=== PATIENT | male | born 1950 ===

== ENCOUNTER → 2021-11-10 | Outpatient (CLI) | payer MEDICARE, BC ==
[~2021-11-10] MED LIST: DOBUTamine DRIP for NUC MED 500 MG in DEXTROSE/WATER 1 250ML.BAG IV PRN
--- NOTE | 2021-11-10 19:21 | CA ---
Dobutamine Stress Echocardiogram Report Josh Franz Age: 71 Gender: M : 1950 Exam Date: 11/10/2021 09:33 Exam Location: [facility] Ordering Physician: Earnest Montavlo DO Referring Physician: EARNEST MONTALVO,, Filler Sifter Helper: NICHOLE Technologist: Ht (in): 72 Wt (lb): 220 Procedure CPT: Indication: I50.9 heart failure ICD-9 Codes: Rhythm: Patient History: sob, dm, chol, family hx. Cardiac Medications: Medications in past 24 hours: Contrast: Lumason Total Dose (mL): 10 Stress Results Protocol: Dobutamine Peak Dose (???g/kg/min): 40 Duration (min:sec): Atropine:(mg) N/A Target HR: 125 Double Product: Resting HR: 72 Resting BP: 146 / 81 Peak HR: 128 Peak BP: 157 / 77 Max Predicted HR: 147 87 % Max Predicted HR Stress Summary: BP Response: Reason for Termination: Cardiac Symptoms: ECG Analysis Resting EKG: Stress EKG: Arrhythmia: Echo Analysis Base Echo Analysis: Low Echo Anaylsis: Peak Echo Analysis: Recovery Echo: MEASUREMENTS (Male/Female) Normal Values CONCLUSIONS Baseline heart rate 73 beats a minute, Baseline blood pressure 146/81 mmHg Baseline 12-lead EKG showed sinus rhythm with normal ST segments Patient received dobutamine infusion the per protocol Peak heart rate 120 beats a minute Blood pressure 157/77 mmHg No ECG ms for ischemia Excellent augmentation of overall LV contractility in a stepwise manner without development of any wall motion abnormalities At recovery regional global LV systolic function within normal Impression normal dobutamine stress echo Dr. Florencio Medeiros MD (Electronically Signed) Final Date: 10 Nov 2021 19:20
== END | disposition home or self-care (01) ==
LOC: RADNMMAIN 08:57
PROVIDERS: ATTEND Internal Medicine Nephrology
DX: I50.9 Heart failure, unspecified (principal)
CPT/HCPCS: C8930; Q9950; 93351

== ENCOUNTER → 2023-05-25 | Outpatient (CLI) | payer MEDICARE, BC ==
[2023-05-25 16:20] LABS: HCT 35.2 % (39.6-50.0); HGB 11.2 g/dL (13.0-17.0); MCHC 31.8 g/dL (32.0-37.0); MCV 72.3 FL (80.0-97.0); Mean Platelet Volume 11.9 FL (9.5-12.2); NRBC Per 100 WBC 0 X 10*3/uL (0.00-0.01); Platelet Count 220 X 10*3/uL (140-440); RBC 4.87 X 10*6/uL (4.40-5.60); RDW 16.1 % (11.5-14.5); WBC 6.23 X 10*3/uL (4.50-10.00)
[2023-05-25 16:35] LABS: BUN/Creat Ratio 16.19 Ratio (12.00-20.00); Blood Urea Nitrogen 25.9 mg/dL (9.0-27.0); Carbon Dioxide 25.2 mmol/L (21.6-31.8); Chloride 103 mmol/L (96-109); Glucose 265 mg/dL (70-110); Potassium 4.4 mmol/L (3.5-5.5); Sodium 140 mmol/L (135-145)
[2023-05-25 16:50] LABS: Basophils # (A) 0.02 X 10*3/uL (0.00-0.10); Basophils % (A) 0.3 %; Eosinophils # (A) 0.24 X 10*3/uL (0.04-0.35); Eosinophils % (A) 3.9 %; Lymphocytes # (A) 1.48 X 10*3/uL (0.90-5.00); Lymphocytes % (A) 23.8 %; Monocytes # (A) 0.46 X 10*3/uL (0.20-1.00); Monocytes % (A) 7.4 %; Neutrophils % (A) 64.1 %; RBC Morphology Normal (Normal)
== END | disposition home or self-care (01) ==
LOC: LABWHC1 10:29
PROVIDERS: ATTEND Surgery
DX: R39.14 Feeling of incomplete bladder emptying (principal)
CPT/HCPCS: 36415; 80048; 85025

== ENCOUNTER → 2023-08-17 | Outpatient (CLI) | payer BC, MEDICARE ==
[2023-08-17 08:39] VITALS: RESP 14
[2023-08-17 08:40] VITALS: BP 146/86; PULSE 81
--- NOTE | 2023-08-17 09:12 | P.PAINPG ---
PQRS Measure Charge Sheet Comment: HISTORY OF PRESENT ILLNESS: A 73 yr old male w at side as a referral from Dr Singh Barrow presents today w severe and chronic incomplete bladder emptying secondary to Prostatic Hyperplasia for evaluation. Pt states intensity level is provoked at 8 /10 in intensity, constant but waxes & wanes in intensity, localized in the periurethral region, achy in character without shooting pain. Discomfort is alleviated slightly by frequent bladder emptying, medications (Tramadol), repositioning and rest. PMH: OA, HTN, BPH PSH: TURP (Apr 2023) SH: Never smoker, No ETOH abuse, No illicit drug use. . FH: DM All: See list Meds: See list REVIEW OF ORGAN SYSTEMS: CONSTITUTIONAL: No fevers or chills. No recent weight loss. NEUROLOGICAL: + numbness and tingling along the distal extremities. No seizure disorders or headaches. MUSCULOSKELETAL: + pain PSYCHIATRIC: Denies current depression or suicidal thoughts. Physical Examinations : Constitutional : Cooperative , not in acute distress . Neurologic : Cranial nerve II to XII intact. No focal neurological deficits. Psychiatric : alert & oriented x 3. Matching mood & appropriate affect. Judgment & insight intact. Musculoskeletal : Cervical Spine Motor strength in the deltoid and biceps: Normal right side. Normal Left side Motor strength biceps and the wrist extensors: Normal right side . Normal left side Motor strength in the triceps muscle: Normal right side. Normal left side Deep tendon reflexes: Normal at the biceps. Normal at Brachioradialis. Normal at triceps Vertebral body tenderness to deep palpation over Cervical facet loading test: positive bilaterally Spurling test: positive bilaterally Neck distraction test: positive bilaterally Anna sign: positive bilaterally Lumbar spine Motor strength lower extremities ,thigh and legs 5/5 Right side , 5/5 Left side Deep tendon reflexes : Normal Knee Jerk. Normal Ankle Jerk Vertebral body tenderness over Seay Test positive Lumbar facet Loading Test: positive Right / positive Left Range of motion of the lumbar spine Flexion 30 degrees, extension 10 degrees Straight Leg Raise test: Left/ Right positive at degrees José test: positive right / positive left. Severe tenderness over the Sacroiliac joint on the Right / Left sides Gaenslen test: positive bilaterally Seated flexion test: positive bilaterally. Sacral spine : Severe tenderness over the Sacroiliac joint: right side / left side Range of motion: Flexion of the lumbar spine <60 degrees Range of motion: Extension of the keke mbar spine <20 degrees Gaenslen's Test positive José test: positive right side / left side Thigh Thrust Test Sacral Thrust Test Imaging: None on file Assessment/ Plan : Sense of Bladder Fullness secondary to Prostatic Hyperplasia Recommendation of Pudendal Nerve Block. May need a series of injections for optimal pain relief. Risks, benefits of procedure discussed and patient verbalized understanding. Admits to anti- coagulant use or medical history of diabetes. Protocol for discontinuation/ continuation of medications verona procedure discussed. Minimal anesthesia provided, if clinically indicated, consisting of Versed and Fentanyl. All questions answered. I have spent greater than 30 minutes on patient care today. Dr Mack was available by phone for the evaluation of this patient. The time was used to review the medical records including relevant urine studies and Prescription history (MAPs), review of the available imaging, evaluation and examination of the patient, coordination of care with the medical staff and if applicable referring physicians, as well as creation of the medical record Home Medications: Ambulatory Orders Aspirin EC [Ecotrin Low Dose] 81 mg PO DAILY 08/17/23 Fenofibrate Nanocrystallized [Tricor] 145 mg PO 08/17/23 Insulin Aspart Scale Rx Form [NovoLOG Outpatient Scale Rx Form] 1 each MISCELLANE DIRECTED 08/17/23 Insulin Glargine [Lantus Vial] 0 unit SQ HS 08/17/23 Metoprolol Succinate (ER) [Toprol Xl] 12.5 mg PO DAILY 08/17/23 Metoprolol Succinate (ER) [Toprol Xl] 25 mg PO DAILY 08/17/23 Simvastatin [Zocor] 40 PO DAILY 08/17/23 amLODIPine [Norvasc] 5 mg PO DAILY 08/17/23 Controlled Substance Measures - Controlled Substance Measures Is patient prescribed a controlled substance at discharge?: No
== END ==
LOC: PNWHC3 07:44
PROVIDERS: ATTEND Anesthesiology
DX: N40.1 Benign prostatic hyperplasia with lower urinary tract symptoms (principal); R39.14 Feeling of incomplete bladder emptying; M19.90 Unspecified osteoarthritis, unspecified site; I10 Essential (primary) hypertension; Z79.82 Long term (current) use of aspirin; Z79.899 Other long term (current) drug therapy
CPT/HCPCS: 99211

== ENCOUNTER 2023-08-23 11:01 | Day surgery (SDC) | payer MEDICARE ==
[~2023-08-23 11:01] MED LIST changes: -DOBUTamine DRIP for NUC MED 500 MG in DEXTROSE/WATER 1 250ML.BAG IV PRN; +LACTATED RINGERS 1,000 ML IV SCH
[2023-08-23] MEDS: LACTATED RINGERS 1,000 ML IV ONE (11:23)
[2023-08-23 12:05] VITALS: RESP 16; TEMP 98.2
[2023-08-23] MEDS ORDERED: ROPIVACAINE 5MG/ML 20ML VIAL ONE (12:34)
[2023-08-23] MEDS ORDERED: methylPREDNISolone ACETATE 40 MG/ML 1 ML VIAL ONE (12:34)
--- NOTE | 2023-08-23 12:59 | P.PCN ---
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 Complication = none Condition= stable Anesthesia= local anesthesia with ropivacaine 0.5% 4 ml only Indication for the procedure= patient complaining of spermatic pain, diagnosed with pudendal neuralgia , he was referred to have bilateral pudendal nerve block Description of the procedure= procedure risk and benefits discussed with the patient, including but not limited, risk of infection and bleeding, and ALLERGIC reaction to the medication and not complete pain relief and patient agreed with the preceding patient taken to the operating room, placed in prone position or standard monitors applied to the patient then after induction of anesthesia back prepped with chlorhexidine 3 times , Then under strict sterile technique, first I did the right pudendal nerve 21- gauge Jank needle advanced slowly with ultrasound guidance and passed through sacrospinous ligament and sacrotuberous ligament, then needle advanced medial to pudendal artery, after negative aspiration ropivacaine 0.25% mixed with 20 mg of Depo-Medrol injected after negative aspiration, 5 cc of the mixture injected, the exact same procedure was done to the left side, did the left side pudendal nerve block
[2023-08-23 13:34] VITALS: BP 139/80; PULSE 65
== END 2023-08-23 13:27 | disposition home or self-care (01) ==
LOC: ORPAIN 11:01
PROVIDERS: ATTEND Specialist
DX: G57.83 Other specified mononeuropathies of bilateral lower limbs (principal); E11.9 Type 2 diabetes mellitus without complications; Z79.82 Long term (current) use of aspirin
CPT/HCPCS: 64483; J1030; J2795

== ENCOUNTER → 2023-09-07 | Outpatient (CLI) | payer MEDICARE ==
[2023-09-07 10:29] VITALS: BP 134/80; PULSE 91; RESP 16; TEMP 97.3
--- NOTE | 2023-09-07 14:26 | P.PAINPG ---
PQRS Measure Charge Sheet Comment: HISTORY OF PRESENT ILLNESS: A 73 yr old male w at side presents today w severe and chronic incomplete bladder emptying secondary to Prostatic Hyperplasia for evaluation s/p Pudendal Nerve Block. Pt states he experienced 0% pain relief s/p procedure. Pt states intensity level is provoked at 8 /10 in intensity, constant but waxes & wanes in intensity, localized in the periurethral region, stinging in character without shooting pain. Discomfort is alleviated slightly by frequent bladder emptying, medications, repositioning and rest. Interventional procedures include Pudendal NB x1 (Jul 2023) Medications include Tramadol REVIEW OF ORGAN SYSTEMS: CONSTITUTIONAL: No fevers or chills. No recent weight loss. NEUROLOGICAL: + numbness and tingling along the distal extremities. No seizure disorders or headaches. MUSCULOSKELETAL: + pain PSYCHIATRIC: Denies current depression or suicidal thoughts. Physical Examinations : Constitutional : Cooperative , not in acute distress . Neurologic : Cranial nerve II to XII intact. No focal neurological deficits. Psychiatric : alert & oriented x 3. Matching mood & appropriate affect. Judgment & insight intact. Musculoskeletal : Cervical Spine Motor strength in the deltoid and biceps: Normal right side. Normal Left side Motor strength biceps and the wrist extensors: Normal right side . Normal left side Motor strength in the triceps muscle: Normal right side. Normal left side Deep tendon reflexes: Normal at the biceps. Normal at Brachioradialis. Normal at triceps Vertebral body tenderness to deep palpation over Cervical facet loading test: positive bilaterally Spurling test: positive bilaterally Neck distraction test: positive bilaterally Anna sign: positive bilaterally Lumbar spine Motor strength lower extremities ,thigh and legs 5/5 Right side , 5/5 Left side Deep tendon reflexes : Normal Knee Jerk. Normal Ankle Jerk Vertebral body tenderness over Seay Test positive Lumbar facet Loading Test: positive Right / positive Left Range of motion of the lumbar spine Flexion 30 degrees, extension 10 degrees Straight Leg Raise test: Left/ Right positive at degrees José test: positive right / positive left. Severe tenderness over the Sacroiliac joint on the Right / Left sides Gaenslen test: positive bilaterally Seated flexion test: positive bilaterally. Sacral spine : Severe tenderness over the Sacroiliac joint: right side / left side Range of motion: Flexion of the lumbar spine <60 degrees Range of motion: Extension of the lumbar spine <20 degrees Gaenslen's Test positive José test: positive right side / left side Thigh Thrust Test Sacral Thrust Test Imaging: None on file Assessment/ Plan : Sense of Bladder Fullness secondary to Prostatic Hyperplasia Recommendation of Ganglion Impar Block. May need a series of injections for optimal pain relief. Risks, benefits of procedure discussed and patient verbalized understanding. Admits to anti- coagulant use or medical history of diabetes. Protocol for discontinuation/ continuation of medications verona procedure discussed. Minimal anesthesia provided, if clinically indicated, consisting of Versed and Fentanyl. Recommendation of medication management. Tramadol 50mg #60 w 1 RF. Narcotic/ Opiate agreement signed 09/07/23. Use, side effects, adverse reaction and safe storage discussed. All questions answered. I have spent greater than 30 minutes on patient care today. Dr Mack was available by phone for the evaluation of this patient. The time was used to review the medical records including relevant urine studies and Prescription history (MAPs), review of the available imaging, evaluation and examination of the patient, coordination of care with the medical staff and if applicable referring physicians, as well as creation of the medical record PQRS Narrative: Hx Alcohol Use (MH) No Home Medications: Ambulatory Orders Fenofibrate Nanocrystallized [Tricor] 145 mg PO QAM 08/17/23 Insulin Aspart Scale Rx Form [NovoLOG Outpatient Scale Rx Form] 0 each MISCELLANE ACHS 08/17/23 Insulin Glargine [Lantus Vial] 50 unit SQ HS 08/17/23 Metoprolol Succinate (ER) [Toprol Xl] 12.5 mg PO BID 08/17/23 Simvastatin [Zocor] 40 mg PO HS 08/17/23 amLODIPine [Norvasc] 5 mg PO QAM 08/17/23 Vit C/E/Zn/Coppr/Lutein/Zeaxan [Preservision Areds 2 Softgel] 1 each PO DAILY 08/18/23 traMADol HCL [traMADol HCL ER] 1 tab PO BID PRN 30 Days #60 cap 09/07/23 Controlled Substance Measures - Controlled Substance Measures Is patient prescribed a controlled substance at discharge?: Yes When asked, does pt state using other controlled substances?: No If prescribed controlled substance>3 days was MAPS reviewed?: Yes If Rx opioid, was Start Talking consent form obtained?: Yes Was information provided regarding opioid addiction?: Yes
== END ==
LOC: PNWHC3 08:31
PROVIDERS: ATTEND Specialist
DX: N40.1 Benign prostatic hyperplasia with lower urinary tract symptoms (principal); N32.89 Other specified disorders of bladder; E11.9 Type 2 diabetes mellitus without complications; Z79.4 Long term (current) use of insulin
CPT/HCPCS: 99211

== ENCOUNTER 2023-09-27 07:14 | Day surgery (SDC) | payer MEDICARE ==
[2023-09-22 12:19] VITALS: BMI 29.8
[2023-09-27 07:50] VITALS: RESP 18; TEMP 97.4
[2023-09-27] MEDS: LACTATED RINGERS 1,000 ML IV SCH (07:50)
[2023-09-27 07:53] LABS: Glucose,Whole Blood 159 mg/dL (70-110)
[2023-09-27] MEDS ORDERED: ROPIVACAINE 5MG/ML 20ML VIAL ONE (08:19)
[2023-09-27] MEDS ORDERED: IOPAMIDOL M200 10 ML VIAL ONE (08:19)
[2023-09-27] MEDS ORDERED: TRIAMCINOLONE ACETONIDE 40 MG/ML 1 ML VIAL ONE (08:19)
--- NOTE | 2023-09-27 08:30 | P.PCN ---
Date of Procedure: 09/27/23 Procedure(s) Performed: Ganglion Impar Block with Fluoroscopy Date of the procedure: 09/27/2023 PREOP DIAGNOSIS= Proctalgia/Coccydynia POSTOP DIAGNOSIS=:Proctalgia/Coccydynia PROCEDURE: Ganglion impar block under fluoroscopy guidance. SURGEON: Pedro Singh MD ANESTHESIA: Local with 1% lidocaine 3 ml EBL:None. Fluoroscopy image saved and stored PROCEDURE INDICATION: The patient with chronic proctitis non responsive to more conservative measures. severe and chronic incomplete bladder emptying secondary to Prostatic Hyperplasia PROCEDURE DESCRIPTION: The patient was seen and identified in the preoperative area. Risks, benefits, complications, and alternatives were discussed with the patient. The patient agreed to proceed with the procedure and signed the consent. IV was started, and vital signs were stable. Patient was taken to the OR and time out was completed. The patient was placed in the prone position on procedure table and a pillow was placed under the abdomen to reduce lumbar lordosis.The lumbosacral area was prepped and draped in the usual sterile fashion. Critical pause was taken. Vital signs were closely monitored during the procedure. Using crosstable lateral view, the sacrococcygeal joint was identified and localized with 1% lidocaine. 25-guage 3-1/2 inch needle was inserted through the sacrococcygeal ligament and advanced to the anterior aspect of the joint guided by surjit-posterior and lateral fluoroscopy. Correct needle position was verified by injecting 2 ml of water soluble dye, Omnipaque 300, and observing a spread along the anterior side of the sacro-coccygeal ligament. After negative aspiration of CSF, blood, and no paresthesias, 5 mL of block solution containing 4mL of 0.5%preservative-free Ropivacaine and kenalog 40 mg was injected. Continuous fluoroscopy was utilized to visualize appropriate spread proximally, Needle was withdrawn intact. Skin was cleansed and bandages were applied COMPLICATIONS: None DISPOSITION / PLANS: The patient was placed in a supine position and transferred to the recovery area in a stable condition for observation. Patient was discharged from the recovery room after meeting discharge criteria. Discharge instructions given to the patient by the staff. The patient was reexamined prior to discharge. The patient will schedule a follow up in the clinic in 2-4 weeks.
[2023-09-27] MEDS: IV FLUID CONTINUATION 600 ML IV ONE (08:32)
[2023-09-27 09:01] VITALS: BP 135/78; PULSE 62
--- NOTE | 2023-09-27 10:00 | FL ---
EXAMINATION TYPE: FL guided pain mgmt statistic Intraoperative/procedural fluoroscopic services were provided. Total fluoroscopy time is 17.1 seconds with a total of 3 submitted images to PACS. Please s ee the operative/procedural note for further details. DAP: [id number] mGym2
== END 2023-09-27 09:02 | disposition home or self-care (01) ==
LOC: ORPAIN 07:14
PROVIDERS: ATTEND Anesthesiology
DX: M53.3 Sacrococcygeal disorders, not elsewhere classified (principal)
CPT/HCPCS: 64999; J3301; Q9966; J2795

== ENCOUNTER → 2023-11-02 | Outpatient (CLI) | payer MEDICARE ==
[2023-11-02 10:41] LABS: Basophils # (A) 0.02 X 10*3/uL (0.00-0.10); Basophils % (A) 0.4 %; Eosinophils # (A) 0.15 X 10*3/uL (0.04-0.35); Eosinophils % (A) 2.8 %; HCT 39.6 % (39.6-50.0); HGB 12.6 g/dL (13.0-17.0); Lymphocytes # (A) 1.55 X 10*3/uL (0.90-5.00); Lymphocytes % (A) 29.4 %; MCH 23.3 pg (27.0-32.0); MCHC 31.8 g/dL (32.0-37.0); MCV 73.3 FL (80.0-97.0); Monocytes # (A) 0.39 X 10*3/uL (0.20-1.00); Monocytes % (A) 7.4 %; NRBC Per 100 WBC 0 X 10*3/uL (0.00-0.01); Neutrophils # (A) 3.14 X 10*3/uL (1.80-7.70); Neutrophils % (A) 59.6 %; Platelet Count 154 X 10*3/uL (140-440); RDW 17.1 % (11.5-14.5); WBC 5.27 X 10*3/uL (4.50-10.00)
[2023-11-02 10:47] LABS: Creatinine,Urine Random 148.9 mg/dL
[2023-11-02 14:17] LABS: Appearance,Urine Clear (Clear); Bilirubin,Urine Negative (Negative); Blood,Urine Negative (Negative); Color,Urine Yellow (Yellow); Ketones,Urine Negative (Negative); Nitrite,Urine Negative (Negative); PH, Urine 5.5; Specific Gravity,Urine 1.017 (1.001-1.030)
[2023-11-02 15:39] LABS: BUN/Creat Ratio 15.79 Ratio (12.00-20.00); Blood Urea Nitrogen 22.1 mg/dL (9.0-27.0); Calcium 9.6 mg/dL (8.7-10.3); Carbon Dioxide 24.8 mmol/L (21.6-31.8); Chloride 105 mmol/L (96-109); Glucose 170 mg/dL (70-110); Sodium 141 mmol/L (135-145)
== END | disposition home or self-care (01) ==
LOC: LABWHC1 07:38
PROVIDERS: ATTEND Internal Medicine
DX: N40.1 Benign prostatic hyperplasia with lower urinary tract symptoms (principal); R80.9 Proteinuria, unspecified; N18.31 Chronic kidney disease, stage 3a; I10 Essential (primary) hypertension
CPT/HCPCS: 36415; 80048; 81003; 82570; 83036; 84156; 85025

== ENCOUNTER → 2023-11-02 | Outpatient (CLI) | payer MEDICARE ==
[2023-11-02 08:53] VITALS: BP 135/72; PULSE 76; RESP 15; TEMP 97.2
--- NOTE | 2023-11-02 14:10 | P.PAINPG ---
Objective - Vital Signs Vital signs: Intake & Output 11/01/23 11/02/23 11/02/23 18:59 06:59 18:59 Weight 104.326 kg PQRS Measure Charge Sheet Comment: HISTORY OF PRESENT ILLNESS: A 73 yr old male w at side presents today w severe and chronic incomplete bladder emptying secondary to Prostatic Hyperplasia for evaluation s/p Ganglion Impar Block #1. Pt states he experienced 50% pain relief x 2 wks s/p procedure. Pt states intensity level is provoked at 6 /10 in intensity, constant but waxes & wanes in intensity, localized in the periurethral region, stinging in character without shooting pain. Discomfort is alleviated slightly by frequent bladder emptying, medications, repositioning and rest. Interventional procedures include Pudendal NB x1 (Jul 2023), Ganglion Impar Block x1 (Sep 2023) Medications include Tramadol REVIEW OF ORGAN SYSTEMS: CONSTITUTIONAL: No fevers or chills. No recent weight loss. NEUROLOGICAL: + numbness and tingling along the distal extremities. No seizure disorders or headaches. MUSCULOSKELETAL: + pain PSYCHIATRIC: Denies current depression or suicidal thoughts. Physical Examinations : Constitutional : Cooperative , not in acute distress . Neurologic : Cranial nerve II to XII intact. No focal neurological deficits. Psychiatric : alert & oriented x 3. Matching mood & appropriate affect. Judgment & insight intact. Musculoskeletal : Cervical Spine Motor strength in the deltoid and biceps: Normal right side. Normal Left side Motor strength biceps and the wrist extensors: Normal right side . Normal left side Motor strength in the triceps muscle: Normal right side. Normal left side Deep tendon reflexes: Normal at the biceps. Normal at Brachioradialis. Normal at triceps Vertebral body tenderness to deep palpation over Cervical facet loading test: positive bilaterally Spurling test: positive bilaterally Neck distraction test: positive bilaterally Anna sign: positive bilaterally Lumbar spine Motor strength lower extremities ,thigh and legs 5/5 Right side , 5/5 Left side Deep tendon reflexes : Normal Knee Jerk. Normal Ankle Jerk Vertebral body tenderness over Seay Test positive Lumbar facet Loading Test: positive Right / positive Left Range of motion of the lumbar spine Flexion 30 degrees, extension 10 degrees Straight Leg Raise test: Left/ Right positive at degrees José test: positive right / positive left. Severe tenderness over the Sacroiliac joint on the Right / Left sides Gaenslen test: positive bilaterally Seated flexion test: positive bilaterally. Sacral spine : Severe tenderness over the Sacroiliac joint: right side / left side Range of motion: Flexion of the lumbar spine <60 degrees Range of motion: Extension of the lumbar spine <20 degrees Gaenslen's Test positive José test: positive right side / left side Thigh Thrust Test Sacral Thrust Test Imaging: None on file Assessment/ Plan : Sense of Bladder Fullness secondary to Prostatic Hyperplasia Disinterested in additional procedures at this time. Recommendation of medication management. Tramadol 50mg #60 w 1 RF. Add Neurontin 100mg to titrate to BID #60 w 1 RF. Use, side effects, adverse reactions, safe storage discussed. Narcotic/ Opiate agreement signed 09/07/23. Use, side effects, adverse reaction and safe storage discussed. All questions answered. I have spent greater than 30 minutes on patient care today. Dr Mack was available by phone for the evaluation of this patient. The time was used to review the medical records including relevant urine studies and Prescription history (MAPs), review of the available imaging, evaluation and examination of the patient, coordination of care with the medical staff and if applicable referring physicians, as well as creation of the medical record - Pain Location Groin Pharmacological Interventions: Epidural PQRS Narrative: Hx Alcohol Use (MH) No Home Medications: Ambulatory Orders Fenofibrate Nanocrystallized [Tricor] 145 mg PO QAM 08/17/23 Insulin Aspart Scale Rx Form [NovoLOG Outpatient Scale Rx Form] 0 each MISCELLANE ACHS 08/17/23 Insulin Glargine [Lantus Vial] 50 unit SQ HS 08/17/23 Metoprolol Succinate (ER) [Toprol Xl] 12.5 mg PO BID 08/17/23 Simvastatin [Zocor] 40 mg PO HS 08/17/23 amLODIPine [Norvasc] 5 mg PO QAM 08/17/23 Vit C/E/Zn/Coppr/Lutein/Zeaxan [Preservision Areds 2 Softgel] 1 each PO DAILY 08/18/23 Aspirin [Adult Low Dose Aspirin EC] 81 mg PO DAILY 09/22/23 Cholecalciferol [Vitamin D3 (25 Mcg = 1000 Iu)] 50 mcg PO DAILY 09/22/23 Oxybutynin Chloride [oxyBUTYnin chloride ER] 10 mg PO DAILY 09/22/23 Gabapentin [Neurontin] 100 mg PO BID 30 Days #60 cap 11/02/23 traMADol HCL 50 mg PO BID PRN 30 Days #60 tab 11/02/23 Controlled Substance Measures - Controlled Substance Measures Is patient prescribed a controlled substance at discharge?: Yes When asked, does pt state using other controlled substances?: No If prescribed controlled substance>3 days was MAPS reviewed?: Yes
== END ==
LOC: PNWHC3 07:59
PROVIDERS: ATTEND Specialist
DX: N40.1 Benign prostatic hyperplasia with lower urinary tract symptoms (principal); R39.14 Feeling of incomplete bladder emptying; M47.816 Spondylosis without myelopathy or radiculopathy, lumbar region
CPT/HCPCS: 99211

== ENCOUNTER → 2024-01-04 | Outpatient (CLI) | payer MEDICARE ==
[2024-01-04 11:13] VITALS: BP 132/79; PULSE 70; RESP 16
--- NOTE | 2024-01-04 14:51 | P.PAINPG ---
PQRS Measure Charge Sheet Comment: HISTORY OF PRESENT ILLNESS: A 73 yr old male w at side presents today w severe and chronic incomplete bladder emptying secondary to Prostatic Hyperplasia for evaluation. Pt states intensity level is provoked at 1 /10 in intensity, constant but waxes & wanes in intensity, localized in the periurethral region, stinging in character without shooting pain. Discomfort is alleviated slightly by frequent bladder emptying, medications, repositioning and rest. Interventional procedures include Pudendal NB x1 (Jul 2023), Ganglion Impar Block x1 (Sep 2023) Medications include Tramadol REVIEW OF ORGAN SYSTEMS: CONSTITUTIONAL: No fevers or chills. No recent weight loss. NEUROLOGICAL: + numbness and tingling along the distal extremities. No seizure disorders or headaches. MUSCULOSKELETAL: + pain PSYCHIATRIC: Denies current depression or suicidal thoughts. Physical Examinations : Constitutional : Cooperative , not in acute distress . Neurologic : Cranial nerve II to XII intact. No focal neurological deficits. Psychiatric : alert & oriented x 3. Matching mood & appropriate affect. Judgment & insight intact. Musculoskeletal : Cervical Spine Motor strength in the deltoid and biceps: Normal right side. Normal Left side Motor strength biceps and the wrist extensors: Normal right side . Normal left side Motor strength in the triceps muscle: Normal right side. Normal left side Deep tendon reflexes: Normal at the biceps. Normal at Brachioradialis. Normal at triceps Vertebral body tenderness to deep palpation over Cervical facet loading test: positive bilaterally Spurling test: positive bilaterally Neck distraction test: positive bilaterally Anna sign: positive bilaterally Lumbar spine Motor strength lower extremities ,thigh and legs 5/5 Right side , 5/5 Left side Deep tendon reflexes : Normal Knee Jerk. Normal Ankle Jerk Vertebral body tenderness over Seay Test positive Lumbar facet Loading Test: positive Right / positive Left Range of motion of the lumbar spine Flexion 30 degrees, extension 10 degrees Straight Leg Raise test: Left/ Right positive at degrees José test: positive right / positive left. Severe tenderness over the Sacroiliac joint on the Right / Left sides Gaenslen test: positive bilaterally Seated flexion test: positive bi laterally. Sacral spine : Severe tenderness over the Sacroiliac joint: right side / left side Range of motion: Flexion of the lumbar spine <60 degrees Range of motion: Extension of the lumbar spine <20 degrees Gaenslen's Test positive José test: positive right side / left side Thigh Thrust Test Sacral Thrust Test Imaging: None on file Assessment/ Plan : Sense of Bladder Fullness secondary to Prostatic Hyperplasia Disinterested in additional procedures at this time. Will manage residual pain and may RTC on an as needed basis. Has ample supply Tramadol 50mg #60 and Neurontin 100mg at this time. Use, side effects, adverse reactions, safe storage discussed. Narcotic/ Opiate agreement signed 09/07/23. Use, side effects, adverse reaction and safe storage discussed. All questions answered. I have spent greater than 30 minutes on patient care today. Dr Mack was av ailable by phone for the evaluation of this patient. The time was used to review the medical records including relevant urine studies and Prescription history (MAPs), review of the available imaging, evaluation and examination of the patient, coordination of care with the medical staff and if applicable referring physicians, as well as creation of the medical record PQRS Narrative: Hx Alcohol Use (MH) No Home Medications: Ambulatory Orders Fenofibrate Nanocrystallized [Tricor] 145 mg PO QAM 08/17/23 Insulin Aspart Scale Rx Form [NovoLOG Outpatient Scale Rx Form] 0 each MISCELLANE ACHS 08/17/23 Insulin Glargine [Lantus Vial] 50 unit SQ HS 08/17/23 Metoprolol Succinate (ER) [Toprol Xl] 12.5 mg PO BID 08/17/23 Simvastatin [Zocor] 40 mg PO HS 08/17/23 amLODIPine [Norvasc] 5 mg PO QAM 08/17/23 Vit C/E/Zn/Coppr/Lutein/Zeaxan [Preservision Areds 2 Softgel] 1 each PO DAILY 08/18/23 Aspirin [Adult Low Dose Aspirin EC] 81 mg PO DAILY 09/22/23 Cholecalciferol [Vitamin D3 (25 Mcg = 1000 Iu)] 50 mcg PO DAILY 09/22/23 Oxybutynin Chloride [oxyBUTYnin chloride ER] 10 mg PO DAILY 09/22/23 Gabapentin [Neurontin] 100 mg PO BID 30 Days #60 cap 11/02/23 traMADol HCL 50 mg PO BID PRN 30 Days #60 tab 11/02/23 Controlled Substance Measures - Controlled Substance Measures Is patient prescribed a controlled substance at discharge?: No
== END ==
LOC: PNWHC3 10:02
PROVIDERS: ATTEND Specialist
DX: N40.1 Benign prostatic hyperplasia with lower urinary tract symptoms (principal); R39.14 Feeling of incomplete bladder emptying
CPT/HCPCS: 99211